=== PATIENT | male | born 1970 | race Caucasian/White ===

== ENCOUNTER 2019-11-05 10:37 | Emergency (ER) | payer MEDICARE, MEDICAID, SELFPAY ==
[2019-11-05 10:58] VITALS: BP 134/91; PULSE 80; RESP 16; TEMP 36.4; O2SAT 98
--- NOTE | 2019-11-05 11:12 | ED.UPPEXIN ---
HPI - Extremity Injury (Upper) General Chief Complaint: Extremity Injury, Upper Stated Complaint: left hand swollen Time Seen by Provider: 11/05/19 11:13 Source: patient Mode of arrival: ambulatory Limitations: no limitations History of Present Illness HPI narrative: Allen Ramey is a 48 yo male with a PMH of diabetes, high cholesterol, bipolar disorder, who comes to express care with complaints of left hand pain times the last 3 days. Related Data Home Medications Medication Instructions Recorded Confirmed Invega Trinza 11/05/19 Tresiba FlexTouch U-100 11/05/19 Trulicity 11/05/19 divalproex 11/05/19 fenofibrate nanocrystallized mg PO 11/05/19 metformin 11/05/19 pantoprazole 11/05/19 simvastatin 11/05/19 tramadol 11/05/19 Allergies Allergy/AdvReac Type Severity Reaction Status Date / Time steroids Allergy Rash Uncoded 11/05/19 11:04 Review of Systems Review of Systems: Narrative: CONSTITUTIONAL: Denies fever, chills, sweats. EYES: Denies visual changes, redness, discharge. ENT: Denies rhinorrhea, congestion, sore throat, otalgia. CARDIOVASCULAR: Denies chest pain, palpitations, edema. RESPIRATORY: Denies dyspnea, wheezing, cough GASTROINTESTINAL: Denies abdominal pain, nausea, vomiting, diarrhea. GENITOURINARY: Denies dysuria, hematuria, abnormal discharge SKIN: Denies rash or itching. NEUROLOGIC: Denies numbness, or focal weakness. PSYCHIATRIC: Denies anxiety or depression. Left hand pain PMFSH Family History Family History Other Diabetes mellitus Hypertension Social History Social History (Updated 11/05/19 @ 11:19 by Antonia Isaac CNP) Smoking status: Current every day smoker Alcohol intake: former Gender identity (if verbalized by the patient): Male Comments At time of signature, I agree with nursing past medical, surgical, social and family history. There is no relevant family history pertinent to the presenting complaint. Patient's blood pressure is elevated but sees PCP on a regular basis for monitoring Exam Narrative: Exam Narrative: GENERAL: This is a well-nourished, well-developed patient, in mild distress. afebrile, HEAD: normocephalic, atraumatic. EYES:. Sclera clear/white. Vision is grossly intact. EARS: External ears normal. Hearing grossly intact. NOSE: External nose normal with nasal discharge, nares without redness, has rhinorrhea. THROAT: Mucous membranes - patient has no teeth NECK: Neck supple, non-tender CARDIOVASCULAR: Regular rate and rhythm without murmurs, gallops, or rubs. RESPIRATORY: Clear to auscultation. Breath sounds equal bilaterally. No wheezes, rales, or rhonchi. Occ dry cough GASTROINTESTINAL: Abdomen soft, non-tender, SKIN: warm, intact with no suspicious lesions or rash, good texture and turgor. NEURO: awake, alert, and oriented to person, place and time. There were no obvious focal neurologic abnormalities. Steady gait EXTREMITIES: Normal range of motion. Pain in L hand wrist with flexion and finger opposition BACK: Nontender without deformity Course Course Emergency Course: wrapped in lala wrap- discussed Tylenol dosing - has cirrhosis, CKD so can't use nephrotoxins Vital Signs Vital signs: Vital Signs Temperature 97.6 F 11/05/19 10:58 Pulse Rate 80 11/05/19 10:58 Respiratory Rate 16 11/05/19 10:58 Blood Pressure 134/91 H 11/05/19 10:58 Pulse Oximetry 98 11/05/19 10:58 Temperature 97.6 F 11/05/19 10:58 Pulse Rate 80 11/05/19 10:58 Respiratory Rate 16 11/05/19 10:58 Blood Pressure 134/91 H 11/05/19 10:58 Pulse Oximetry 98 11/05/19 10:58 MDM - Extremity Injury (Upper) Differential Diagnosis Differential diagnosis: Likely sprain and strain of wrist, finger sprain and other Discharge Plan Discharge Clinical Impression: Tendonitis Patient Disposition: Home, Self-Care Condition: Stable Instructions: Tendinitis (ED)
== END 2019-11-05 11:30 | disposition home or self-care (01) ==
PROVIDERS: Emergency Provider Nurse Practitioner
DX: M77.9 Enthesopathy, unspecified (principal); E11.8 Type 2 diabetes mellitus with unspecified complications; Z79.84 Long term (current) use of oral hypoglycemic drugs; E78.00 Pure hypercholesterolemia, unspecified
CPT/HCPCS: 99212; G0463